=== PATIENT | female | born 1955 | race Caucasian/White ===

== ENCOUNTER → 2016-12-03 | Outpatient (CLI) | payer OTHER ==
--- NOTE | 2016-12-05 12:40 | MAM ---
EXAM DESCRIPTION: MAMMO BREAST SCREENING BILATERAL CAD, images were reviewed with CAD technology, R2 computer-aided detection. CLINICAL HISTORY: [facility]. COMPARISON: 2012 and 2014. FINDINGS: Routine views are obtained. Scattered glandular pattern with the increased mammographic density and diffuse nodularity period single-view asymmetry is demonstrated in this very nodular breast corresponding to the axillary portion of the left breast, indicated on the MLO film. No microcalcifications or architectural distortion is confirmed. Glandular pattern on the right remains stable. IMPRESSION: Incomplete study. BIRAD CATEGORY: 0 INCOMPLETE RECOMMENDATIONS: FOLLOW-UP: True lateral and axillary tail views of the left breast. Additional views and sonography as indicated. According to the [employer], yearly mammograms are recommended starting at age 40 and continuing as long as a woman is in good health. Any breast change noted on a breast self-exam should be reported promptly to the patient's healthcare provider. Breast MRI is recommended for women with an approximately 20-25% or greater lifetime risk of breast cancer, including women with a strong family history of breast or ovarian cancer and women who have been treated for Hodgkin's disease. Electronically signed by: Suzy Rodriges 12/05/2016 12:38
== END | disposition home or self-care (01) ==
LOC: MAMMO 08:00
PROVIDERS: ATTEND Family Medicine
DX: Z12.31 Encounter for screening mammogram for malignant neoplasm of breast (principal)

== ENCOUNTER → 2017-02-15 | Outpatient (CLI) | payer OTHER ==
--- NOTE | 2017-02-28 11:34 | MAM ---
EXAM DESCRIPTION: Diagnostic Mammo,Left CLINICAL HISTORY: 61 years, Female, ABNORMAL MAMMO COMPARISON: Screening mammogram December 03, 2016. Earlier mammograms dating back to 2012 FINDINGS: CAD used spot compression views of the axillary tail region were obtained. Additionally rotated axillary view obtained. No suspicious mass lesion seen here. Repeat MLO view the left breast did not show the asymmetry previously noted IMPRESSION: No mammographic evidence of malignancy. On additional views, previously noted asymmetry left axillary tail could not be confirmed. Asymmetry may have been compression or summation artifact. In any case this is considered benign finding and standard annual mammographic follow-up should suffice. Category 2: Benign finding Electronically signed by: Norm Gonsalez MD 02/21/2017 3:07 PM CDT
== END ==
LOC: MAMMO 14:00
PROVIDERS: ATTEND Family Medicine
DX: N64.89 Other specified disorders of breast (principal)

== ENCOUNTER → 2018-09-05 | Outpatient (CLI) | payer OTHER ==
--- NOTE | 2018-09-06 12:32 | MAM ---
EXAM DESCRIPTION: 3D Screening BILATERAL : Digital Mammography. CLINICAL HISTORY: 63 years Female ANNUAL SCREENING . No complaints. No personal or family history of breast cancer. No childbirth. Postmenopausal. No HRT. Lifetime risk of developing breast cancer (Tyrer-Cuzick model)(%): 7.2. COMPARISON: 2-D digital screening bilateral mammography 12/03/2016. Digital diagnostic left mammography 02/15/2017.. TECHNIQUE: Bilateral CC and MLO projection full-field images, digital tomosynthesis mammographic technique. Bilateral digital 2-D full-field MLO images. CAD not available for tomosynthesis or 2-D images. FINDINGS: The breast parenchymal density pattern is: Heterogeneously dense breast tissue, which may obscure small masses. No skin thickening or nipple retraction. Few bilateral solitary microcalcifications. No new focal, stellate mass or density, focal asymmetry , and no suspicious microcalcifications bilaterally. Stable mammograms compared to prior study. Taking into account, differences in mammographic technique. IMPRESSION: Benign exam. BIRAD CATEGORY: 2 BENIGN FINDINGS. RECOMMENDATIONS: FOLLOW UP: Routine digital bilateral mammographic screening, one year interval from August 2018. Written communication explaining the IMPRESSION and follow-up, will be mailed to the patient and referring health care provider. According to the [employer], yearly mammograms are recommended starting at age 40 and continuing as long as a woman is in good health. Any breast change noted on a breast self-exam should be reported promptly to the patient's healthcare provider. Breast MRI is recommended for women with an approximately 20-25% or greater lifetime risk of breast cancer, including women with a strong family history of breast or ovarian cancer and women who have been treated for Hodgkin's disease. A negative mammographic report should not delay tissue diagnosis in patients with significant clinical history or physical findings. Extremely dense breast tissue limits the sensitivity of digital mammography. Electronically signed by: Sukumar Evans MD 09/06/2018 12:31 PM [employer]
== END ==
LOC: MAMMO 10:47
PROVIDERS: ATTEND Family Medicine
DX: Z12.31 Encounter for screening mammogram for malignant neoplasm of breast (principal)

== ENCOUNTER → 2020-04-09 | Outpatient (CLI) | payer OTHER | LOC: MAMMO 15:34 | PROVIDERS: ATTEND Family Medicine | DX: Z12.31 Encounter for screening mammogram for malignant neoplasm of breast (principal) ==

== ENCOUNTER 2020-11-08 13:12 | Emergency (ER) | payer SELFPAY ==
[2020-11-08] MEDS ORDERED: ONDANSETRON INJ 4 MG/2 ML VIAL IV ONE (13:43)
[2020-11-08] MEDS ORDERED: MORPHINE SULFATE INJ 10 MG/ML VIAL IV ONE ×2 (13:43→15:38)
--- NOTE | 2020-11-08 13:45 | ED.PDOC ---
History of Present Illness - General Stated Complaint: right facial swelling Time Seen by Provider: 11/08/20 13:39 Source: patient, RN notes reviewed, Vital Signs reviewed, family Exam Limitations: no limitations - History of Present Illness Initial Comments: Pt presents to ED for right facial pain and swelling. States her pain began 2 weeks ago and was seen by her dentist and an oral surgeon with no cause found and has an appointment with a doctor in [facility] next week for evaluation. States she has been on Azithromycin for this for the past 7 days w/o improvement. Denies fever, chills, tooth pain, difficulty swallowing or breathing. Has been taking motrin at home for pain. Allergies/Adverse Reactions: Allergies Penicillins Allergy (Verified 11/08/20 13:48) Home Medications: Ambulatory Orders Acetaminophen W/ Codeine [Tylenol W/ CODEINE #3] 1 tablet PO Q6H PRN 4 Days #20 11/08/20 Clindamycin HCl [Cleocin] 300 mg PO Q6H 10 Days capsule 11/08/20 Review of Systems - Review of Systems Constitutional: Denies: chills, fever EENTM: States: other - right facial swelling. Denies: blurred vision, ear pain, nose pain, nose congestion, throat pain, throat swelling, mouth pain Respiratory: Denies: cough, short of breath Cardiology: Denies: edema, palpitations, syncope Gastrointestinal/Abdominal: Denies: abdominal pain, diarrhea, nausea, vomiting Musculoskeletal: Denies: back pain Skin: States: no symptoms reported All other Systems: Reviewed and Negative Family Medical History - Family History Mother Family History: Unknown Physical Exam - Physical Exam General Appearance: Alert, Anxious, No apparent distress Ears, Nose, Throat: normal pharynx, other - Bilateral TM's normal. OP has no erythema, edema or exudates. No dental tenderness of abscesss. There is right facial swelling to lower cheek with no erythema, warmth or fluctuance Neck: non-tender, full range of motion, supple Respiratory: chest non-tender, lungs clear, normal breath sounds, no respiratory distress Cardiovascular/Chest: regular rate, rhythm, no murmur Gastrointestinal/Abdominal: non tender, soft, no pulsatile mass Back Exam: no CVA tenderness, no vertebral tenderness Extremity: normal range of motion, non-tender, no pedal edema Neurologic: cigar roller II-XII nml as tested, no motor/sensory deficits, alert, normal mood/affect Skin Exam: normal color, warm/dry Progress - Progress Progress: 11/08/20 15:40 Pt presents with right facial swelling for about [address] shows edema with no abscess. Will stop Azithro and start Clindamycin. I have discussed possible jenni;ivary gland obstruction vs infection. Will try sour candy and warm compress and f/u with oral surgeon this week as scheduled. - Results/Orders Results/Orders: CT soft tissue neck IMPRESSION: * Right facial soft tissue swelling between the maxilla mandible without submandibular space extension. No subcutaneous abscess or lesion. No obvious dental pathology on CT. * A few reactive lymph nodes in the right level 1B and 2 regions. Laboratory Results - last 24 hr 11/08/20 11/08/20 13:57 13:57 WBC 11.8 H RBC 3.75 L Hgb 11.0 L Hct 33.3 L MCV 88.8 MCH 29.3 MCHC 33.1 RDW 14.0 Plt Count 304 MPV 7.3 L Absolute Neuts (auto) 9.00 H Absolute Lymphs (auto) 1.50 Absolute Monos (auto) 1.10 H Absolute Eos (auto) 0.10 Absolute Basos (auto) 0.10 Neutrophils % 76.3 Lymphocytes % 12.5 L Monocytes % 9.5 H Eosinophils % 1.2 Basophils % 0.5 Sodium 131 L Potassium 4.3 Chloride 97 L Carbon Dioxide 25 Anion Gap 13.3 BUN 8 Creatinine 0.81 BUN/Creatinine Ratio 9.9 L Random Glucose 109 H Serum Osmolality 261.6 L Calcium 10.4 H Departure - Departure Clinical Impression: Salivary gland infection, Right facial swelling Time of Disposition: 15:42 Disposition: Discharge to Home or Self Care Condition: Good Instructions: Salivary Gland Infection (DC) Activity: increase activity as tolerated Referrals: CHANTELLE GARCIA IV, SR. DIRECTOR [Primary Care Provider] - 1-2 Days Prescriptions: Clindamycin HCl [Cleocin] 300 mg PO Q6H 10 Days capsule Acetaminophen W/ Codeine [Tylenol W/ CODEINE #3] 1 tablet PO Q6H PRN 4 Days #20 PRN Reason: Pain Home Medications: Ambulatory Orders Acetaminophen W/ Codeine [Tylenol W/ CODEINE #3] 1 tablet PO Q6H PRN 4 Days #20 11/08/20 Clindamycin HCl [Cleocin] 300 mg PO Q6H 10 Days capsule 11/08/20
[2020-11-08 13:51] VITALS: BP 155/84; TEMP 98.6; O2SAT 97
--- NOTE | 2020-11-08 14:59 | CT ---
TECHNIQUE: Soft Tissue Neck Computerized axial tomography of the soft tissue neck was performed following the IV injection of iodinated nonionic contrast. Coronal and sagittal reconstructed imaging provided. Automated exposure control, adjustment of the mA and/or kV according to patient size, and/or use of iterative reconstruction technique. CT Dose Length Product: 246.41 mGy-cm. CTDI vol: 11.01 mGy. HISTORY: MAIN with IV contrast. Right facial swelling COMPARISONS: None currently available. FINDINGS: Right facial soft tissue swelling starts at the level of the maxilla and and at the level of the mandible. No extension into the submandibular space is evident. No fluid collection or enhancing mass identified. No obvious underlying dental lesion is evident. The mandible and maxilla appear well corticated without destruction or periosteal reaction to suggest osteomyelitis. The platysmas muscle slightly inflamed. The submandibular gland appears intact. The masseter muscle appears intact. Right parotid gland and duct appear uninvolved. No A few prominent right level 1B lymph nodes identified. Mildly prominent right level 2 lymph nodes identified. Nasopharynx: No enlarged tonsils. No nasal cavity lesions identified. No mass. Oropharynx: [place] and lingual tonsils are within normal limits. Floor of the mouth is unremarkable. Pharynx: Epiglottis is unremarkable. Aryepiglottic folds are unremarkable. Larynx: True and false cords are symmetrical. No significant airway compromise. Vascular structures are unremarkable. No aneurysm. No dissection. No filling defects. No mass lesions identified. Parotid glands demonstrate normal appearance. The submandibular glands are unremarkable. The thyroid gland is unremarkable. Partially imaged paranasal sinuses are unremarkable. Partially imaged temporal bones are unremarkable. Cervical spondylosis. Partial images of the lungs are unremarkable. IMPRESSION: * Right facial soft tissue swelling between the maxilla mandible without submandibular space extension. No subcutaneous abscess or lesion. No obvious dental pathology on CT. * A few reactive lymph nodes in the right level 1B and 2 regions. Electronically signed by: Andrew Evangelista 11/08/2020 2:58 PM [facility]
== END 2020-11-08 16:15 | disposition home or self-care (01) ==
LOC: ER 13:12
DX: K11.8 Other diseases of salivary glands (principal); R22.0 Localized swelling, mass and lump, head; Z88.0 Allergy status to penicillin
CPT/HCPCS: 36415; 70490; 80048; 85025; J2270; J2405